=== PATIENT | male | born 1965 | race Two or more races ===

== ENCOUNTER 2023-11-24 02:24 | Emergency (ER) | payer BC, OTHER ==
[~2023-11-24] VITALS: Ht 180.3 cm; Wt 96.2 kg
[2023-11-24 03:09] LABS: COVID19 ANTIGEN SOFIA FIA POSITIVE (NEGATIVE)
[2023-11-24] MEDS: DexAMETHasone SOD PHOS 10MG/1ML VIAL INJ IM ONE (06:51)
[2023-11-24 07:08] VITALS: TEMP 98.2
[2023-11-24 07:10] VITALS: PULSE 80; RESP 20; O2SAT 96
[2023-11-24 08:23] LABS: Basophils # (auto) 0 10 ^3/uL (0-0.2); Basophils % (auto) 0.7 % (0.0-2.0); Eosinophils # (auto) 0.3 10 ^3/uL (0-0.8); Eosinophils % (auto) 4.8 % (0.0-7.0); Hematocrit 51.1 % (41.0-53.0); Hemoglobin 17.6 g/dL (13.5-17.5); Lymphocytes # (auto) 1.9 10 ^3/uL (0.4-5.4); Lymphocytes % (auto) 32.6 % (10.0-50.0); Mean Corpuscular Hgb Conc. 34.5 g/dL (32.0-36.0); Mean Corpuscular Volume 98.4 fL (80.0-100.0); Monocytes # (auto) 0.6 10 ^3/uL (0-1.3); Monocytes % (auto) 10.9 % (0.0-12.0); Nucleated Red Blood Cells % 0.2 %; Platelet Count (auto) 173 10^3/uL (140-450); Red Blood Cells 5.19 10^6/uL (4.5-5.90); Red Cell Distribution Width 14.1 % (11.8-14.3); White Blood Cell 5.9 10^3/uL (4.4-10.8)
[2023-11-24 08:32] LABS: Alanine Aminotransferase 186 U/L (7-40); Albumin 4.7 g/dL (3.2-4.8); Alkaline Phosphatase 91 U/L (46-116); Anion Gap 9 (5-15); Aspartate Aminotransferase 153 U/L (13-40); Blood Urea Nitrogen 13 mg/dL (9-23); Calcium 9.9 mg/dL (8.7-10.4); Carbon Dioxide 25 mmol/L (20-30); Chloride 99 mmol/L (98-107); Glucose 175 mg/dL (74-106); Potassium 3.8 mmol/L (3.5-5.1); Sodium 133 mmol/L (136-145)
[2023-11-24 08:33] LABS: Bilirubin, Total 0.7 mg/dL (0.2-1.0); Total Protein 8.4 g/dL (5.7-8.2)
[2023-11-24] MEDS ORDERED: ALBUAER3 IN (08:52)
[2023-11-24] MEDS ORDERED: AZITTAB2 PO (08:52)
[2023-11-24] MEDS ORDERED: DEX4T PO (08:52)
[2023-11-24 09:37] VITALS: BP 115/75; PULSE 83; RESP 18; O2SAT 96
== END 2023-11-24 09:43 | disposition home or self-care (01) ==
LOC: ER 02:24
DX: U07.1 COVID-19 (principal)
CPT/HCPCS: 36415; 71045; 80053; 85025; 87426; 96372; 99284; J1100